=== PATIENT | female | born 1950 | race Caucasian/White ===

== ENCOUNTER 2016-08-18 18:32 | Emergency (ER) | payer MEDICARE, OTHER ==
[~2016-08-18] VITALS: Ht 160 cm; Wt 80.0 kg
[2016-08-18 18:33] VITALS: BP 128/78; PULSE 120; RESP 20; TEMP 97.4; O2SAT 93
[2016-08-18] MEDS ORDERED: ASPIRIN 81 MG CHEW TAB PO ONE (20:45)
[2016-08-18] MEDS ORDERED: SODIUM CHLORIDE 0.9% FLUSH 5 ML FLUSH IVF PRN (20:45)
[2016-08-18] MEDS ORDERED: CHLORPHENIR/HYDROCOD LIQUID 8 MG/10 MG/5 ML CUP PO ONE (20:45)
[2016-08-18 20:46] VITALS: BP 138/69; PULSE 96; RESP 20; O2SAT 98
--- NOTE | 2016-08-18 20:54 | PD ---
HPI . Cough, chest pain and shortness of breath Chief Complaint: Chest Pain Time Seen by Provider: 20:27 Travel History International Travel<30 days: No Contact w/Intl Traveler<30days: No Traveled to known affect area: No History of Present Illness HPI Patient presents with cough, chest pain and shortness of breath. She states her problems all started probably 3 or 4 weeks ago when she was diagnosed with acute bronchitis. She was treated with what sounds like a Z-Darrius, steroids and an inhaler. She got better. She had her then came to [place] on August 03. Approximately 2 days ago, her symptoms recurred. She denies fever. She denies sputum production. Symptoms have been unrelieved by Mucinex and a cough syrup. Her states that she became pale and diaphoretic today which is what prompted him to bring her to the emergency department for further evaluation. She has a past medical history of hypertension and is a nonsmoker. PFSH Past Medical History High Cholesterol: Yes Hypertension: Yes Immunizations Current: Yes Thyroid Disease: Yes Tetanus Vaccination: < 5 Years Influenza Vaccination: Yes Past Surgical History Other Surgery: Yes (RIGHT SHOULDER AND BACK) Social History Alcohol Use: Yes Tobacco Use: No Substance Use: No Allergies-Medications (Allergen,Severity, Reaction): Coded Allergies: No Known Allergies (Unverified , 08/18/16) Review of Systems Except as stated in HPI: all other systems reviewed are Neg General / Constitutional: No: Fever, Chills Cardiovascular: Positive: Chest Pain or Discomfort (exacerbated by coughing and breathing.) Respiratory: Positive: Cough, Shortness of Breath Skin: Positive Other (pale and diaphoretic earlier today. ) Physical Exam Narrative GENERAL: This is a healthy-appearing woman who is in no acute distress. SKIN: Warm and dry. HEAD: Atraumatic. Normocephalic. EYES: Pupils equal and round. ENT: No nasal bleeding or discharge. Mucous membranes pink and moist. NECK: Trachea midline. Neck is supple. CARDIOVASCULAR: Regular rate and rhythm. Heart sounds are normal. RESPIRATORY: No accessory muscle use. Lungs are clear with full air movement throughout. GASTROINTESTINAL: Abdomen soft, non-tender, nondistended. MUSCULOSKELETAL: No obvious deformities. No edema. No calf tenderness. NEUROLOGICAL: Awake and alert. No obvious cranial nerve deficits. Motor grossly within normal limits. Normal speech. PSYCHIATRIC: Appropriate mood and affect; insight and judgment normal. Data Data Last Documented VS Vital Signs Date Time Temp Pulse Resp B/P Pulse Ox O2 Delivery O2 Flow Rate FiO2 08/18/16 20:46 96 20 138/69 98 Room Air 08/18/16 18:33 97.4 Orders Electrocardiogram (08/18/16 ) Basic Metabolic Panel (Bmp) (08/18/16 20:36) Ckmb (Isoenzyme) Profile (08/18/16 20:36) Complete Blood Count With Diff (08/18/16 20:36) D-Dimer (08/18/16 20:36) Magnesium (Mg) (08/18/16 20:36) Prothrombin Time / Inr (Pt) (08/18/16 20:36) Act Partial Throm Time (Ptt) (08/18/16 20:36) Troponin I (08/18/16 20:36) Chest, Single Ap (08/18/16 20:36) Ecg Monitoring (08/18/16 20:36) Bilateral Bp Monitoring (08/18/16 20:36) Iv Access Insert/Monitor (08/18/16 20:36) Oximetry (08/18/16 20:36) Aspirin Chew (Aspirin Chew) (08/18/16 20:45) Sodium Chloride 0.9% Flush (Ns Flush) (08/18/16 20:45) Chlorphenir-Hydrocodone Liq (Tussionex L (08/18/16 20:45) CKMB (08/18/16 20:56) CKMB% (08/18/16 20:56) Labs Laboratory Tests Test 08/18/16 20:56 White Blood Count 6.1 TH/MM3 Red Blood Count 4.07 MIL/MM3 Hemoglobin 12.9 GM/DL Hematocrit 37.2 % Mean Corpuscular Volume 91.3 FL Mean Corpuscular Hemoglobin 31.6 PG Mean Corpuscular Hemoglobin 34.6 % Concent Red Cell Distribution Width 13.3 % Platelet Count 247 TH/MM3 Mean Platelet Volume 8.1 FL Neutrophils (%) (Auto) 71.1 % Lymphocytes (%) (Auto) 18.4 % Monocytes (%) (Auto) 6.9 % Eosinophils (%) (Auto) 2.5 % Basophils (%) (Auto) 1.1 % Neutrophils # (Auto) 4.4 TH/MM3 Lymphocytes # (Auto) 1.1 TH/MM3 Monocytes # (Auto) 0.4 TH/MM3 Eosinophils # (Auto) 0.2 TH/MM3 Basophils # (Auto) 0.1 TH/MM3 CBC Comment DIFF FINAL Differential Comment Prothrombin Time 10.2 SEC Prothromb Time International 0.9 RATIO Ratio Activated Partial 25.3 SEC Thromboplast Time D-Dimer Quantitative (PE/DVT) 0.30 MG/L FEU Sodium Level 136 MEQ/L Potassium Level 3.6 MEQ/L Chloride Level 101 MEQ/L Carbon Dioxide Level 23.8 MEQ/L Anion Gap 11 MEQ/L Blood Urea Nitrogen 12 MG/DL Creatinine 0.89 MG/DL Estimat Glomerular Filtration 64 ML/MIN Rate Random Glucose 120 MG/DL Calcium Level 8.5 MG/DL Magnesium Level 2.1 MG/DL Total Creatine Kinase 169 U/L Creatine Kinase MB 0.9 NG/ML Troponin I LESS THAN 0.02 NG/ML MDM Medical Decision Making Medical Screen Exam Complete: Yes Emergency Medical Condition: Yes Medical Record Reviewed: Yes (she has no old records in our system.) Interpretation(s) EKG shows a sinus rhythm with a rate of about 100 and no acute ischemic changes. She has no old EKGs for comparison. Differential Diagnosis Differential diagnosis of chest pain includes but is not limited to musculoskeletal pain, pulmonary embolism, acute coronary syndrome, pneumonia, pleurisy Narrative Course Patient presents for chest pain, cough and shortness of breath. Her symptoms sound respiratory. She will be evaluated for possible ACS or PE. Last Impressions Chest X-Ray 08/18/162035 Signed Impressions: Service Date/Time: August 20:51 - CONCLUSION: No acute disease. Steven Austin MD Chest x-ray was independently viewed by me. CBC & BMP Diagram 08/18/16 20:56 D-dimer is negative. Patient is now complaining with a severe headache. She would like me to give her something for her headache through her IV before we discharge her to home. Diagnosis Primary Impression: Chest pain Qualified Code: R07.9 - Chest pain, unspecified type Additional Impressions: Shortness of breath Cough Scripts Hydrocodone-Chlorpheniramine 12 HR Liq (Tussionex Pennkinetic Ext 12 HR Liq)10- 8 Mg/5 Ml Susp5 Ml PO Q12H PRN (COUGH AND/OR COLD SYMPTOMS) #60 ML Ref 0 Prov:Meme Jenkins MD 08/18/16 Disposition: 01 DISCHARGE HOME Condition: Stable Meme Jenkins MD Aug 18, 2016 20:54
[2016-08-18 21:19] LABS: AUTOMATED NEUTROPHIL # 4.4 TH/MM3 (1.8-7.7); BASOPHIL # 0.1 TH/MM3 (0-0.2); BASOPHIL % 1.1 % (0.0-2.0); EOSINOPHIL # 0.2 TH/MM3 (0-0.4); EOSINOPHIL % 2.5 % (0.0-4.0); HEMATOCRIT 37.2 % (35.0-46.0); HEMO FLAGS DIFF FINAL; LYMPH % 18.4 % (9.0-44.0); LYMPHOCYTE # 1.1 TH/MM3 (1.0-4.8); MEAN CELL VOLUME 91.3 FL (80.0-100.0); MEAN CORPUSCULAR HEMOGLOBIN 31.6 PG (27.0-34.0); MEAN CORPUSCULAR HGB CONC 34.6 % (32.0-36.0); MONO % 6.9 % (0.0-8.0); NEUT % 71.1 % (16.0-70.0); PLATELET COUNT 247 TH/MM3 (150-450); RED BLOOD COUNT 4.07 MIL/MM3 (4.00-5.30); RED CELL DISTRIBUTION WIDTH 13.3 % (11.6-17.2); WHITE BLOOD COUNT 6.1 TH/MM3 (4.0-11.0)
--- NOTE | 2016-08-18 21:29 | RADRPT ---
EXAM DATE/TIME: 08/18/2016 20:51 [facility] COMPARISON: No previous studies available for comparison. INDICATIONS : Patient has had chest pain and a cough for a week. MEDICAL HISTORY : None. SURGICAL HISTORY : Shoulder replacment. ENCOUNTER: Initial ACUITY: 1 week PAIN SCORE: 4/10 LOCATION: Bilateral chest FINDINGS: A single view of the chest demonstrates the lungs to be symmetrically aerated without evidence of mas s, infiltrate or effusion. The cardiomediastinal contours are unremarkable. There is a right shoulde r prosthesis in place. CONCLUSION: No acute disease. Steven Austin MD on August 18, 2016 at 21:27 Board Certified Radiologist. This report was verified electronically.
[2016-08-18 21:47] LABS: ANION GAP 11 MEQ/L (5-15); BICARBONATE 23.8 MEQ/L (21.0-32.0); BLOOD UREA NITROGEN 12 MG/DL (7-18); CHLORIDE 101 MEQ/L (98-107); CREATINE KINASE 169 U/L (26-192); GLOMERULAR FILTRATION RATE 64 ML/MIN (>89); MAGNESIUM 2.1 MG/DL (1.5-2.5); SODIUM (NA) 136 MEQ/L (136-145)
[2016-08-18 21:48] LABS: POTASSIUM 3.6 MEQ/L (3.5-5.1)
[2016-08-18 21:49] LABS: APTT (PATIENT) 25.3 SEC (24.3-30.1); INTERNATIONAL NORMALIZED RATIO 0.9 RATIO; PROTHROMBIN TIME - PATIENT 10.2 SEC (9.8-11.6)
[2016-08-18 22:00] LABS: CKMB 0.9 NG/ML (0.5-3.6)
[2016-08-18 22:14] VITALS: BP 136/66; PULSE 85; RESP 20; O2SAT 98
[2016-08-18] MEDS ORDERED: TUSSSUS2 PO (22:15)
[2016-08-18] MEDS ORDERED: PROCHLORPERAZINE INJ 10 MG/2 ML VIAL IVS ONE (22:15)
[2016-08-18] MEDS ORDERED: diphenhydrAMINE HCL 50 MG/ML VIAL IV PUSH ONE (22:15)
--- NOTE | 2016-08-19 16:45 | EKG ---
Date Performed: 08/18/2016 Time Performed: 18:52:27 PTAGE: 65 years EKG: SINUS TACHYCARDIA POSSIBLE LEFT ATRIAL ENLARGEMENT ABNORMAL RHYTHM ECG NO PREVIOUS TRACING DOCTOR: Krzysztof Castle Interpretating Date/Time 08/19/2016 16:42:07
== END 2016-08-18 22:58 | disposition home or self-care (01) ==
LOC: NEPE 18:32
DX: R07.9 Chest pain, unspecified (principal); R06.02 Shortness of breath; R05 Cough; R51 Headache; R00.0 Tachycardia, unspecified; I10 Essential (primary) hypertension
CPT/HCPCS: 71010; 80048; 82550; 82552; 83735; 84484; 85025; 85379; 85610; 85730; 93005; 96374; 96375; 99285; J0780; J1200